=== PATIENT | female | born 1995 ===

== ENCOUNTER 2018-07-28 15:17 | Emergency (ER) | payer MEDICAID, SELFPAY ==
[2018-07-28 15:21] VITALS: BP 111/61; PULSE 86; RESP 16; TEMP 37.2; O2SAT 99
[2018-07-28 15:40] LABS: Bilirubin Negative (Negative); Blood Trace-intact (Negative); Clarity Sl Cloudy; Glucose Negative (Negative); Ketones Negative (Negative); Leukocyte Esterase Negative (Negative); Nitrite Negative (Negative); Urobilinogen 0.2 EU/dL (Up TO 0.2); pH 6.5 (5-8)
[2018-07-28 16:01] LABS: Bacteria Few HPF (Negative); C & S Indicated? No/Sq. Contamination; Casts Negative LPF (Negative); Crystals Negative HPF (Negative); Epithelial Cells Many HPF (Negative); Mucus Negative (Negative); Other Cells Negative (Negative); RBC 0-2 (0-2); WBC Negative HPF (0-5)
--- NOTE | 2018-07-28 16:35 | ED.GENADUL_ITS ---
Discharge Plan Disposition Patient Disposition: HOME Condition: Good Discharge Details Chief Complaint: Nk/Back Pain Clinical Impression: Shingles Primary Care Provider: Brayan Soria ED Provider: Ceferino Geronimo Home Meds and New Rx's Prescriptions: New acyclovir 800 mg tablet 800 mg PO Q4H Qty: 28 RF: 0 Discharge Instructions Instructions: Shingles (ED) Stand Alone Forms: Work Release Referrals: [facility] Emergency Dept. [Outside] - Return if symptoms worsen (F/U at the urgent care center at [facility] on Sunday if the symptoms worsen. ) Discharge Data Discharge Date/Time-TO BE ENTERED AT DEPARTURE: 07/28/18 16:50 Medical Decision Making Vague symptom and presentation for shingles however being she has had them in the past it seems most likely cause of rash. Does not look like insect bites. Plan to treat with Axyclovir. Advised to return to urgent clinic at [facility] if symptoms continues or worsens. Use ibuprofen for pain. Pt is a patient of [facility]. HPI General Mode of arrival: ambulatory . Date/Time Provider Initiated Documentation: 07/28/18 16:32 . Limitations to Documentation: no limitations . Information obtained by: patient and family . History of Present Illness 23 year old F presents to the emergency department with the chief complaint of shingles, described as moderate, HPI Narrative: 23 y/o female here with c/o rash on back. Pain and burning sensation for last day or two and rash manifesting today. Denies any injury or UI symptoms. Tells me it is more on her skin than outside. Tells me she has had shingles before and it felt similar to this. A coworker told her she needed to be seen because it looked like spider bites and her skin could slough off. She has not noticed any spiders around her and does not recall any insect bites. Her tells me this is the main reason they come here was fear of her skin sloughing off. Related Data Home Medications Medication Instructions Recorded Confirmed acyclovir 800 mg PO Q4H #28 tab 07/28/18 Previous Rx's Medication Instructions Recorded acyclovir 800 mg PO Q4H #28 tab 07/28/18 Allergies Allergy/AdvReac Type Severity Reaction Status Date / Time No Known Drug Allergies Allergy Unverified 04/08/18 15:24 General Stated Complaint: Nk/Back Pain CYNTHIA: 4 Review of Systems Constitutional Reports as per HPI ENT Reports system reviewed and no additional complaints, except as docu Cardiovascular Reports system reviewed and no additional complaints, except as docu Respiratory Reports system reviewed and no additional complaints, except as docu Gastrointestinal Reports system reviewed and no additional complaints, except as docu Genitourinary Reports system reviewed and no additional complaints, except as docu Musculoskeletal Reports back pain (burning and cramping near the rash) Integumentary/Breasts Reports rash (low back center and to the left) PFS Social History Smoking/Tobacco Use Status: Never Surgical History Ligation of fallopian tube (12/19/17) Exam Const General: cooperative and well groomed Nutritional Appearance: average body habitus Orientation: alert, awake and oriented x3 Back/Spine/Pelvis Back: no CVA tenderness, No mass, No erythema and No warmth Cervical Spine: normal cervical lordosis and cervical ROM normal Thoracic/Lumbar Spine: thoraco-lumbar ROM normal and other (light diffuse patch of slightly raise patches to the left center of lumbar spine and then slight above that patch is another patch to the left aswell. Both is tender to touch. Not vesicualr, red, or draining) Skin Lesions: no lesions Rashes: rashes noted (back) Neuro General: alert, awake, oriented x3 and moves all extremities Cognition: normal cognition Speech: speech normal Gait: normal gait Motor: muscle tone normal throughout Extrem General: full ROM and normal capillary refill Psych Appearance: grossly normal Mental Status: mental status grossly normal Speech and Movement: speech and movement normal Mood: congruent mood Affect: normal affect Attitude: cooperative Thought Process: normal Thought Content: normal Insight: insight good Judgment: judgment good Course Vital Signs Temperature 37.2 C 07/28/18 15:21 Pulse 86 07/28/18 15:21 Respiratory Rate 16 07/28/18 15:21 Blood Pressure 111/61 07/28/18 15:21 Pulse Oximetry 99 07/28/18 15:21 Temperature 37.2 C 07/28/18 15:21 Temperature Source Oral 07/28/18 15:21 Pulse 86 07/28/18 15:21 Respiratory Rate 16 07/28/18 15:21 Respiratory Effort 07/28/18 15:21 Blood Pressure 111/61 07/28/18 15:21 Blood Pressure Position Sitting 07/28/18 15:21 Pulse Oximetry 99 07/28/18 15:21 Oxygen Delivery Method Room Air 07/28/18 15:21 Oxygen Flow Rate 0 07/28/18 15:21 Lab/Test Results Lab/Test Results: Laboratory Tests Range/Units 07/28/18 15:28 Urine Color (Yellow) Yellow Urine Clarity Sl cloudy Urine pH (5-8) 6.5 Ur Specific Blessing (1.005-1.025) 1.020 Urine Protein (Negative) mg/dL Negative Urine Ketones (Negative) mg/dL Negative Urine Blood (Negative) Trace-intact H Urine Nitrite (Negative) Negative Urine Bilirubin (Negative) Negative Urine Urobilinogen (Up TO 0.2) EU/dL 0.2 Ur Leukocyte Esterase (Negative) Negative Urine RBC (0-2) 0-2 Urine WBC (0-5) HPF Negative Ur Epithelial Cells (Negative) HPF Many Urine Crystals (Negative) HPF Negative Urine Bacteria (Negative) HPF Few Urine Casts (Negative) LPF Negative Urine Mucus (Negative) Negative Urine Other (Negative) Negative Ur Culture Indicated? No/sq. contamination Urine Glucose (Negative) mg/dL Negative
--- NOTE | 2018-07-29 09:45 | NUR.NOTE ---
Nursing Note: Patient called stating that she was unable to nut picker the prescription yesterday. The rash (shingles) has spread and is very painful. Is there another medicine other than tylenol or motrin for pain? Spoke with Rafy Geronimo who saw the patient, he stated to tell her that she needs to nut picker the prescription, continue with the tylenol or motrin. She can also call her PMD or see him at the Urgent Care Clinic at [facility] on Sunday. Called the patient back and gave her this information. Kenyatta Johnson.
== END 2018-07-28 16:50 | disposition home or self-care (01) ==
PROVIDERS: Emergency Provider Nurse Practitioner Family; PCP Family Medicine
DX: B02.9 Zoster without complications (principal)
CPT/HCPCS: 99283; 81003; 81015

== ENCOUNTER 2018-07-30 10:00 | Emergency (ER) | payer MEDICAID, SELFPAY ==
[2018-07-30 10:09] VITALS: BP 108/67; PULSE 66; RESP 14; TEMP 36.5; O2SAT 100
--- NOTE | 2018-07-30 10:34 | W.ED.GENAD ---
Discharge Plan Disposition Patient Disposition: HOME Condition: Good Discharge Details Chief Complaint: RashLesion Clinical Impression: Shingles Primary Care Provider: Brayan Soria ED Provider: Ceferino Andrew [place] Meds and New Rx's Prescriptions: New lidocaine 4 % adhesive patch,medicated 1 patch TP TID PRN (Reason: pain) Qty: 6 RF: 0 gabapentin 300 mg capsule 300 mg PO TID Qty: 30 RF: 0 oxycodone 5 mg tablet 5 mg PO Q4H PRN (Reason: pain, severe) Qty: 10 RF: 0 Continue acyclovir 800 mg tablet 800 mg PO Q4H Qty: 28 RF: 0 Discharge Instructions Instructions: Shingles (ED) Medical Decision Making PAtient comes in with 3 days of painful rash along t9 distrubtion, dx'd with shingles 2 days ago and is on acyclovir but still has pain so came here. Rash does have appearance of shingles and follows dermatome, doesn't cross midline, has 3 patches and not warm to touch so doubt cellulitis or nec fasc. Will prescribe her gabapentin and opiates and lidocaine patch and advised f/u with pcp and return precauitons given Differential Diagnosis shingles, cellulitis HPI General Mode of arrival: ambulatory. Date/Time Provider Initiated Documentation: 07/30/18 10:09. Limitations to Documentation: no limitations. Information obtained by: patient. History of Present Illness 23 year old F presents to the emergency department with the chief complaint of rash, described as moderate, with intensity rated at 4. Quality is described as burning, Patient started experiencing this day(s) (3) and it has been constant. No relieving factors improve symptom(s), No exacerbating factors reported . Patient notes no other symptoms.. Patient did receive the following treatments prior to arrival, other (acyclovir, tylenol, ibuprofen) Related Data Home Medications Medication Instructions Recorded Confirmed acyclovir 800 mg PO Q4H #28 tab 07/28/18 07/30/18 gabapentin 300 mg PO TID #30 cap 07/30/18 lidocaine 1 patch TP TID PRN #6 each 07/30/18 oxycodone 5 mg PO Q4H PRN #10 tab 07/30/18 Previous Rx's Medication Instructions Recorded acyclovir 800 mg PO Q4H #28 tab 07/28/18 gabapentin 300 mg PO TID #30 cap 07/30/18 lidocaine 1 patch TP TID PRN #6 each 07/30/18 oxycodone 5 mg PO Q4H PRN #10 tab 07/30/18 Allergies Allergy/AdvReac Type Severity Reaction Status Date / Time No Known Drug Allergies Allergy Unverified 07/30/18 10:11 General Stated Complaint: RashLesion CYNTHIA: 4 Review of Systems Review of Systems All systems reviewed & are unremarkable except as noted in HPI and below Constitutional Denies chills, Denies fever(s) and Denies weakness Eyes Denies loss of vision ENT Denies change in voice Cardiovascular Denies chest pain and Denies dyspnea Respiratory Denies dyspnea Gastrointestinal Denies abdominal pain, Denies nausea and Denies vomiting Genitourinary Denies dysuria Musculoskeletal Denies joint swelling Neurologic Denies loss of vision and Denies weakness Psychiatric Denies depression Endocrine Denies cold intolerance and Denies heat intolerance Allergic/Immunologic Denies urticaria PFSH Social History Smoking/Tobacco Use Status: Never Surgical History Ligation of fallopian tube (12/19/17) Exam Const General: no acute distress Orientation: alert HENND Head: normal to inspection Ears: external ears normal General nose exam: external nose normal Mouth: moist mucous membranes Eyes General: appearance normal, both eyes and all related structures Neck Neck: normal visual inspection Resp Effort & Inspection: normal respiratory effort and able to speak in complete sentences Cardio Rate: regular rate Skin General skin exam: other (maculopapular rash with vesciles in left t9 distribution) Neuro General: alert and oriented x3 Extrem General: normal to inspection Psych Mental Status: mental status grossly normal Course Vital Signs Temperature 36.5 C 07/30/18 10:09 Pulse 66 07/30/18 10:09 Respiratory Rate 14 07/30/18 10:09 Blood Pressure 108/67 07/30/18 10:09 Pulse Oximetry 100 07/30/18 10:09 Temperature 36.5 C 07/30/18 10:09 Temperature Source Temporal Artery Scan 07/30/18 10:09 Pulse 66 07/30/18 10:09 Respiratory Rate 14 07/30/18 10:09 Respiratory Effort Non-Labored 07/30/18 10:15 Blood Pressure 108/67 07/30/18 10:09 Pulse Oximetry 100 07/30/18 10:09 Pain Level 10 07/30/18 10:09
--- NOTE | 2018-07-30 10:38 | ED.GENADUL_ITS ---
Discharge Plan Disposition Patient Disposition: HOME Condition: Good Discharge Details Chief Complaint: RashLesion Clinical Impression: Shingles Primary Care Provider: Brayan Soria ED Provider: Ceferino Andrew [place] Meds and New Rx's Prescriptions: New lidocaine 4 % adhesive patch,medicated 1 patch TP TID PRN (Reason: pain) Qty: 6 RF: 0 gabapentin 300 mg capsule 300 mg PO TID Qty: 30 RF: 0 oxycodone 5 mg tablet 5 mg PO Q4H PRN (Reason: pain, severe) Qty: 10 RF: 0 Continue acyclovir 800 mg tablet 800 mg PO Q4H Qty: 28 RF: 0 Discharge Instructions Instructions: Shingles (ED) Medical Decision Making PAtient comes in with 3 days of painful rash along t9 distrubtion, dx'd with shingles 2 days ago and is on acyclovir but still has pain so came here. Rash does have appearance of shingles and follows dermatome, doesn't cross midline, has 3 patches and not warm to touch so doubt cellulitis or nec fasc. Will prescribe her gabapentin and opiates and lidocaine patch and advised f/u with pcp and return precauitons given Differential Diagnosis shingles, cellulitis HPI General Mode of arrival: ambulatory . Date/Time Provider Initiated Documentation: 07/30/18 10:09 . Limitations to Documentation: no limitations . Information obtained by: patient . History of Present Illness 23 year old F presents to the emergency department with the chief complaint of rash, described as moderate, with intensity rated at 4. Quality is described as burning, Patient started experiencing this day(s) (3) and it has been constant. No relieving factors improve symptom(s), No exacerbating factors reported . Patient notes no other symptoms.. Patient did receive the following treatments prior to arrival, other (acyclovir, tylenol, ibuprofen ) Related Data Home Medications Medication Instructions Recorded Confirmed acyclovir 800 mg PO Q4H #28 tab 07/28/18 07/30/18 gabapentin 300 mg PO TID #30 cap 07/30/18 lidocaine 1 patch TP TID PRN #6 each 07/30/18 oxycodone 5 mg PO Q4H PRN #10 tab 07/30/18 Previous Rx's Medication Instructions Recorded acyclovir 800 mg PO Q4H #28 tab 07/28/18 gabapentin 300 mg PO TID #30 cap 07/30/18 lidocaine 1 patch TP TID PRN #6 each 07/30/18 oxycodone 5 mg PO Q4H PRN #10 tab 07/30/18 Allergies Allergy/AdvReac Type Severity Reaction Status Date / Time No Known Drug Allergies Allergy Unverified 07/30/18 10:11 General Stated Complaint: RashLesion CYNTHIA: 4 Review of Systems Review of Systems All systems reviewed & are unremarkable except as noted in HPI and below Constitutional Denies chills, Denies fever(s) and Denies weakness Eyes Denies loss of vision ENT Denies change in voice Cardiovascular Denies chest pain and Denies dyspnea Respiratory Denies dyspnea Gastrointestinal Denies abdominal pain, Denies nausea and Denies vomiting Genitourinary Denies dysuria Musculoskeletal Denies joint swelling Neurologic Denies loss of vision and Denies weakness Psychiatric Denies depression Endocrine Denies cold intolerance and Denies heat intolerance Allergic/Immunologic Denies urticaria PFSH Social History Smoking/Tobacco Use Status: Never Surgical History Ligation of fallopian tube (12/19/17) Exam Const General: no acute distress Orientation: alert HENNM Head: normal to inspection Ears: external ears normal General nose exam: external nose normal Mouth: moist mucous membranes Eyes General: appearance normal, both eyes and all related structures Neck Neck: normal visual inspection Resp Effort & Inspection: normal respiratory effort and able to speak in complete sentences Cardio Rate: regular rate Skin General skin exam: other (maculopapular rash with vesciles in left t9 distribution) Neuro General: alert and oriented x3 Extrem General: normal to inspection Psych Mental Status: mental status grossly normal Course Vital Signs Temperature 36.5 C 07/30/18 10:09 Pulse 66 07/30/18 10:09 Respiratory Rate 14 07/30/18 10:09 Blood Pressure 108/67 07/30/18 10:09 Pulse Oximetry 100 07/30/18 10:09 Temperature 36.5 C 07/30/18 10:09 Temperature Source Temporal Artery Scan 07/30/18 10:09 Pulse 66 07/30/18 10:09 Respiratory Rate 14 07/30/18 10:09 Respiratory Effort Non-Labored 07/30/18 10:15 Blood Pressure 108/67 07/30/18 10:09 Pulse Oximetry 100 07/30/18 10:09 Pain Level 10 07/30/18 10:09
== END 2018-07-30 10:54 | disposition home or self-care (01) ==
PROVIDERS: Emergency Provider Emergency Medicine; PCP Family Medicine
DX: B02.9 Zoster without complications (principal)
CPT/HCPCS: 99283

== ENCOUNTER 2018-11-25 11:04 | Outpatient (CLI) | payer MEDICAID, SELFPAY | END 2018-11-25 11:24 | PROVIDERS: PCP Family Medicine; Visit Provider Internal Medicine | DX: R69 Illness, unspecified (principal) | CPT/HCPCS: 36415; 84443; 85025 ==

== ENCOUNTER 2019-05-19 08:01 | Day surgery (SDC) | payer MEDICAID, SELFPAY ==
[2019-05-19] VITALS (7 sets, daily range): BP systolic 92–137; BP diastolic 60–97; PULSE 59–71; RESP 13–22; TEMP 36.4–36.6; O2SAT 98–100
[2019-05-19] MEDS: Lactated Ringers 1,000 ML 80 ML IV (08:35)
--- NOTE | 2019-05-19 09:44 | W.PM.DSUDISC ---
Discharge Plan Disposition Patient Disposition: HOME Condition: Good Discharge Details Reason For Visit: OR Attending Provider: Carlton Hull Primary Care Provider: Felicity Albert Home Meds and New Rx's Prescriptions: No Action sertraline [Zoloft] 25 mg tablet 25 mg PO DAILY Qty: 30 RF: 2 Discharge Instructions Additional Instructions: see sheet Activity:: Activity as Tolerated Remove Dressings/Wound Care:: 24 hours Shower/Bathe:: 24 hours Diet:: As Tolerated DS: Diagnosis Discharge Diagnosis (1) Chronic tonsillitis: Status: Acute (2) Tonsil stone: Status: Acute
--- NOTE | 2019-05-19 10:00 | TONSIL_PTH ---
PATIENT: Ivy Amin LOC: [facility] U#:[id number] AGE/SX: 23/F ROOM: RE05/19/[address]: Carlton Hull DO : 1995 BED: DIS: 05/19/2019 SPEC #: [id number] RECD: 05/19/19 12:04 STATUS: YEN REQ #: [id number] NIA: 05/19/19 10:[address]: Carlton Hull DEPT: Surgical Specimen RECD BY: Audrey Gee ENTERED: 05/19/19 12:05 SP TYPE: TONSIL OTHR DR: Maria Esther Borden APRN Tissues: 1 - TONSIL AGE 17 & OVER 2 - TONSIL AGE 17 & OVER Procedures: GROSS AND MICRO LEVEL 3 Comments: [id number]
[2019-05-19] MEDS: Oxymetazolone 0.05% SPRAY 15 ML BTL (10:09)
[2019-05-19] MEDS: fentaNYL 100 MCG/2 ML VIAL IVP ×2 (10:44→11:12)
--- NOTE | 2019-05-19 12:08 | ROE_ITS ---
REPORT OF OPERATIVE PROCEDURE DATE OF PROCEDURE May 19, 2019 PREOPERATIVE DIAGNOSES Chronic tonsillitis. Chronic tonsil stones. POSTOPERATIVE DIAGNOSES Chronic tonsillitis. Chronic tonsil stones. Adenoid hypertrophy. PROCEDURES Tonsillectomy and adenoidectomy with XPS. SURGEON Carlton Hull D.O. ANESTHESIA General. ESTIMATED BLOOD LOSS 3 cc. COMPLICATIONS None. CONDITION The patient tolerated the procedure well. Stable to PACU without complications. FINDINGS 3+ tonsils and 3+ obstructive adenoids with purulence. INDICATIONS FOR PROCEDURE This is a pleasant 23-year-old female that presents with her with a history of chronic tonsil litis and recurring tonsil stones. The decision was made to proceed with surgery. The risks and compl ications were discussed in detail. Consent was placed in the chart. PROCEDURE IN DETAIL The patient was brought back to the operating suite in stable condition, placed supine on the operati ng table, and intubated in normal fashion. The table was rotated 90 degrees. There was no evidence of submucosal clefting or bifid uvula. The McIvor retractor was placed in the oral cavity and suspen ded from the Garcia stand. The right tonsil was grasped in the superior pole and medialized. Pinpoint cautery was used to develop the peritonsillar fascial plane, dissection was carried out to the upper and mid portions of the tonsil with final amputation conducted with suction cautery. There was no b leeding within the right tonsillar fossa. Next, the left tonsil was grasped in the superior pole wit h a curved Allis forceps and medialized. Pinpoint cautery was used to develop the peritonsillar fasc ial plane. Dissection was carried out in the plane in the superior and mid portion of the tonsils. Final amputation was conducted with suction cautery without bleeding within left fossa, Valsalva was performed without bleeding. TMJ's were checked and were free of dislocation. Gastric contents sucti oned. Red rubber catheters were used to visualize the nasopharynx. The adenoid pad was removed with 4.0 RADenoid blade and hemostasis was controlled with cautery. No bleeding existed. The patient to lerated the procedure well and went to PACU in stable condition.
== END 2019-05-19 12:20 | disposition home or self-care (01) ==
PROVIDERS: PCP Internal Medicine; Visit Provider Otolaryngology Otolaryngology/Facial Plastic Surgery
PROC: (CPT 42821; principal; 2019-05-19 09:45)
DX: J35.03 Chronic tonsillitis and adenoiditis (principal); J35.8 Other chronic diseases of tonsils and adenoids
CPT/HCPCS: 42821; 81025; 88304; J1100; J2250; J2405; J3010

== ENCOUNTER 2019-05-25 21:30 | Emergency (ER) | payer MEDICAID, SELFPAY ==
[2019-05-25 21:36] VITALS: BP 107/66; RESP 16; TEMP 36.6; O2SAT 100
--- NOTE | 2019-05-25 21:53 | ED.GENADUL_ITS ---
Discharge Plan Disposition Patient Disposition: HOME Condition: Improving Discharge Details Chief Complaint: Sorethroat Clinical Impression: Post-tonsillectomy pain Primary Care Provider: Felicity Albert ED Provider: Iker Donaldson Home Meds and New Rx's Prescriptions: Continued sertraline [Zoloft] 25 mg tablet 25 mg PO DAILY Qty: 30 RF: 2 Discharge Instructions Instructions: Tonsillectomy (GEN) Additional Instructions: For pain control: Tylenol 650 mg every 4-6 hours. Ibuprofen 600 to 800 mg every 8 hours. May use Magic mouthwash 5 cc swish and spit every 4 hours. Small, frequent sips of fluids and/or popsicles to maintain hydration. Off work tomorrow night. Return if you develop a fever or any other acute concern Stand Alone Forms: Work Release Medical Decision Making 23-year-old female presents from home with her . She is postop day 6 status post uneventful tonsillectomy. She did not tolerate postoperative narcotics and has been controlling her pain with what she states is 2 Motrin and 2 Tylenol She arrives with normal vital signs. Her oropharynx is notable for dry mucous membranes, appropriate scarring of the tonsillar beds. Differential diagnosis includes dehydration, postoperative pain, is not consistent with infection. IV placed, labs obtained, patient given fluid bolus, ketorolac. Given reasonable data in the literature for perioperative dexamethasone, I did feel that a single administration of anti-inflammatory would be to her benefit. Red blood cell count is normal at 9. Chemistries unremarkable. Following IV fluids, ketorolac, single dose of dexamethasone patient able to take fluids and a popsicle without difficulty, pain improved. Will offer her Magic mouth wash to aid in controlling discomfort. She is stable and improved. Lab Data Lab results reviewed: Yes I reviewed the patient's lab results. Laboratory Results - last 24 hr 05/25/19 05/25/19 22:05 22:05 WBC 9.09 RBC 3.80 L Hgb 11.1 L Hct 33.8 L MCV 88.9 MCH 29.2 MCHC 32.8 RDW 13.4 Plt Count 311 MPV 10.1 Immature Gran % 0.2 Neutrophils % 43.5 Lymphocytes % 46.2 Monocytes % 8.7 Eosinophils % 1.2 Basophils % 0.2 Absolute Neutrophils 3.95 Absolute Lymphocytes 4.20 H Absolute Monocytes 0.79 H Absolute Eosinophils 0.11 Absolute Basophils 0.02 Sodium 139 Potassium 4.5 Chloride 104 Carbon Dioxide 27.3 Anion Gap 7.7 BUN 13 Creatinine 0.65 Estimated GFR/1.73 m2 >= 60.00 Glucose 87 Calcium 8.8 HPI General Mode of arrival: ambulatory . Date/Time Provider Initiated Documentation: 05/25/19 21:33 . Limitations to Documentation: no limitations . Information obtained by: patient . History of Present Illness 23 year old F presents to the emergency department with the chief complaint of Postoperative pain, status post tonsillectomy, described as moderate, Quality is described as dull, and is localized to the mouth. Patient reports no radiation. Patient started experiencing this day(s) and it has been constant. No relieving factors improve symptom(s), No exacerbating factors reported . Patient notes loss of appetite; denies fever/chills. Patient did receive the following treatments prior to arrival, NSAID Related Data Home Medications Medication Instructions Recorded Confirmed sertraline 25 mg tablet 25 mg PO DAILY #30 tab 03/21/19 05/25/19 Previous Rx's Medication Instructions Recorded sertraline 25 mg tablet 25 mg PO DAILY #30 tab 03/21/19 Allergies Allergy/AdvReac Type Severity Reaction Status Date / Time No Known Drug Allergies Allergy Verified 05/25/19 22:22 General Stated Complaint: Sorethroat CYNTHIA: 3 Review of Systems Review of Systems 6 systems reviewed and otherwise negative [facility] Medical History Anxiety (Chronic 03/06/12) Depression (Chronic 03/06/12) History of female sterilization (Resolved 01/03/18) PTSD (post-traumatic stress disorder) (Chronic 03/06/12) Shingles (Chronic) Surgical History Ligation of fallopian tube (12/19/17) Family History Other Cancer Social History Smoking/Tobacco Use Status: Never Alcohol Intake: never Drug use: Never Substance use type: marijuana Do you feel safe at home: Yes Do you feel safe in your relationship?: Yes Additional Social history: unable to complete, no option for privacy of conversation Exam Narrative Exam Narrative: GEN: awake, alert, oriented 3. Pleasant, well groomed, interactive. HEAD: Normocephalic, atraumatic ENT: Mucous membranes dry, oropharynx reveals tonsillar pillars with appropriate postoperative scarring, no asymmetry or swelling, no bleeding. Tympanic membranes clear bilaterally, External ear exam unremarkable EYES: PERRL, EOMI NECK: Full ROM, no ROLLY, no menigismus CHEST/RESP: Nontender, clear to auscultation bilateral, no wheeze/rhonchi/rales CARDIOVASCULAR: RRR, no murmur, rub jun. 2+ Rad pulse bilateral EXT: Full ROM, no edema, no rash Neuro: Grossly normal neurologic exam, conversant, interactive. Psych: Speech fluent, thoughts congruent, affect normal Course Vital Signs Temperature 36.6 C 05/25/19 21:36 Respiratory Rate 16 05/25/19 21:36 Blood Pressure 107/66 05/25/19 21:36 Pulse Oximetry 100 05/25/19 21:36 Temperature 36.6 C 05/25/19 21:36 Temperature Source Temporal Artery Scan 05/25/19 21:36 Respiratory Rate 16 05/25/19 21:36 Blood Pressure 107/66 05/25/19 21:36 Pulse Oximetry 100 05/25/19 21:36 Oxygen Delivery Method Room Air 05/25/19 21:36 Oxygen Flow Rate 0 05/25/19 21:36
[2019-05-25 22:00] VITALS: PULSE 70; RESP 16; O2SAT 100
[2019-05-25] MEDS: Normal Saline 1,000 ML 1000 ML IV (22:00)
[2019-05-25 22:10] LABS: Abs Immature Grans 0.02 k/cumm (0.0-0.09); Absolute Basophil Count 0.02 k/cumm (0.0-0.2); Absolute Eosinophil Count 0.11 k/cumm (0.0-0.7); Absolute Monocyte Count 0.79 k/cumm (0.11-0.7); Absolute Neutrophil Count 3.95 k/cumm (1.2-6.7); Basophils % 0.2; Eosinophils % 1.2; HCT 33.8 % (36.0-46.0); HGB 11.1 g/dL (12.0-15.5); Immature Grans % 0.2; Lymphocytes % 46.2; Mean Corp. HGB Concentration 32.8 g/dL (32.0-36.0); Mean Corpuscular Hemoglobin 29.2 pg (27.0-33.0); Mean Corpuscular Volume 88.9 fL (80-95); Mean Platelet Volume 10.1 fL (8.0-11.0); Monocytes % 8.7; Neutrophils % 43.5; Platelet Count 311 x1000/uL (130-400); RBC Distribution Width 13.4 % (11.7-14.6); White Blood Cell Count 9.09 k/cumm (4.4-10.8)
[2019-05-25] MEDS: Ketorolac 15 MG/ML VIAL IVP (22:11)
[2019-05-25] MEDS: Dexamethasone 10 MG/ML VIAL IVP (22:11)
[2019-05-25 22:18] LABS: Anion Gap 7.7 mmol/L (3-11); BUN 13 mg/dL (7-18); CO2 27.3 mmol/L (21.0-32.0); CREATININE 0.65 mg/dL (0.55-1.02); Calcium 8.8 mg/dL (8.5-10.1); Chloride 104 mmol/L (98-107); Glucose 87 mg/dL (70-100); Potassium 4.5 mmol/L (3.5-5.1); Sodium 139 mmol/L (136-145)
[2019-05-25 22:36] VITALS: PULSE 69; RESP 18; TEMP 36.7; O2SAT 100
[2019-05-25] MEDS: Magic Mouthwash 119 ML BTL PO (23:10)
== END 2019-05-25 22:50 | disposition home or self-care (01) ==
PROVIDERS: Emergency Provider Emergency Medicine; PCP Internal Medicine
DX: G89.18 Other acute postprocedural pain (principal); J02.9 Acute pharyngitis, unspecified
CPT/HCPCS: 36415; 80048; 96361; 96374; 96375; 99284; 85025; J1100; J1885

== ENCOUNTER 2020-06-01 16:46 | Outpatient (REF) | payer MEDICAID, SELFPAY ==
--- NOTE | 2020-06-01 15:00 | PAPFT_PTH ---
PATIENT: Ivy Amin LOC: [facility] U#:[id number] AGE/SX: 24/F ROOM: RE06/01/[address]: Anika Armstrong, PhD [employer] : 1995 BED: DIS: 06/01/2020 SPEC #: [id number] RECD: 06/02/20 12:55 STATUS: YEN REMelinda #: [id number] NIA: 06/01/20 15:[address]: Anika Armstrong DEPT: [facility] Cytology RECD BY: Mario Garcia Tissues: 1 - CX/ENDOCX FOR PAP SMEARS Procedures: PAP THIN PREP/UVM Screening Comments: [id number]
== END 2020-06-01 17:06 ==
LOC: LBN 16:46
PROVIDERS: PCP Nurse Practitioner; Visit Provider Nurse Practitioner
DX: Z12.4 Encounter for screening for malignant neoplasm of cervix (principal)
CPT/HCPCS: 88142

== ENCOUNTER 2021-08-30 13:56 | Outpatient (REF) | payer MEDICAID, SELFPAY ==
[2021-08-31 19:14] LABS: COVID-19 RT-PCR UVMMC Result Positive (Negative)
== END 2021-08-30 13:57 | disposition home or self-care (01) ==
LOC: LBN 13:56
PROVIDERS: PCP Nurse Practitioner; Visit Provider Family Medicine
DX: Z20.822 Contact with and (suspected) exposure to COVID-19 (principal); R50.9 Fever, unspecified
CPT/HCPCS: U0003

== ENCOUNTER 2022-02-20 16:00 | Outpatient (REF) | payer MEDICAID, SELFPAY | END 2022-02-20 16:01 | disposition home or self-care (01) | LOC: LBN 16:00 | PROVIDERS: PCP Nurse Practitioner; Visit Provider Physician Assistant | DX: R10.9 Unspecified abdominal pain (principal) | CPT/HCPCS: 87480; 87510; 87660 ==

== ENCOUNTER 2022-05-05 14:54 | Outpatient (REF) | payer MEDICAID, SELFPAY ==
[2022-05-05 15:26] LABS: HCT 38.7 % (36.0-46.0); HGB 12.6 g/dL (11.2-15.7); MCH 29.4 pg (27.0-33.0); MCHC 32.6 % (32.0-36.0); MCV 90 fL (80-95); MPV 11.7 fL (8.0-11.0); Platelet Count 298 10^3/uL (130-400); RBC 4.29 10^6/uL (3.93-5.22); RDW 12.6 % (11.7-14.6); RDW-SD 41.6 fL; WBC 5.94 10^3/uL (4.4-10.8)
[2022-05-05 15:51] LABS: BUN 9 mg/dL (7-18); CREATININE 0.9 mg/dL (0.55-1.02); Calcium 9.3 mg/dL (8.5-10.1); Chloride 101 mmol/L (98-107); Glucose 71 mg/dL (74-106); Potassium 4.2 mmol/L (3.5-5.1); Sodium 138 mmol/L (136-145)
== END 2022-05-05 14:55 | disposition home or self-care (01) ==
LOC: LBN 14:54
PROVIDERS: PCP Nurse Practitioner; Visit Provider Nurse Practitioner Family
DX: R94.6 Abnormal results of thyroid function studies (principal); Z83.49 Family history of other endocrine, nutritional and metabolic diseases
CPT/HCPCS: 80048; 85027; 84443

== ENCOUNTER 2022-05-06 15:15 | Emergency (ER) | payer MEDICAID, SELFPAY ==
[2022-05-06 15:26] VITALS: BP 93/56; PULSE 102; RESP 16; TEMP 36.9; O2SAT 96
--- NOTE | 2022-05-06 15:45 | DI.CT_ITS ---
Exam(s) CT ABDOMEN PELVIS W EXAM: CT ABDOMEN PELVIS W CLINICAL HISTORY: vomiting feces, abdominal pain. TECHNIQUE: Imaging Protocol: Axial computed tomography images with coronal and sagittal reformatted images were created and reviewed CONTRAST MATERIAL: Intravenous: Omnipaque 350 Contrast volume:85 ml Oral: no COMPARISON: CT ABD PELVIS WO CONTRAST from 02/25/2018 FINDINGS: ABDOMEN: Lung Bases: Normal where visualized. Liver: Normal density. No measurable mass. Gallbladder and biliary tract: No radiodense calculus or dilation. Pancreas: Normal density, no abnormal calcifications or inflammatory process. Spleen: Normal. Kidneys: Normal size, contour and axis. No radiodense stones or obstructive uropathy. No masses seen. Adrenal glands: No masses seen. Abdominal Aorta: Abdominal portion non-dilated. PELVIS: Bladder: No gross wall thickening. No calculi.No focal mass. Bowel: No obstruction or bowel wall thickening. Moderate quantity of stool in colon. No evidence of appendicitis.. Peritoneal cavity: No ascites, collection or mesenteric inflammatory response. Bones: Within normal limits for age. Reproductive organs: Within normal limits. Uterus retroverted. Lymph nodes: Unremarkable. Impression: Unremarkable CT scan of the abdomen and pelvis. RADIATION DOSE DELIVERED: 689.19mGy.cm Total DLP DATA REPOSITORY: All CT scans at this facility are submitted to the National Radiology Data Registry (NRDR) Dose Index Registry (DIR) with the [employer] [place] (ACR). RADIATION OPTIMIZATION: All CT scans at this facility use at least one of these dose optimization te chniques: automated exposure control; mA and/or kV adjustment per patient size (includes targeted exa ms where dose is matched to clinical indication); or iterative reconstruction.
[2022-05-06] MEDS: Lactated Ringers 1,000 ML 1000 ML IV (16:15)
[2022-05-06] MEDS: Ondansetron 4 MG/2 ML VIAL IVP (16:20)
[2022-05-06 16:22] LABS: Abs Immature Grans 0.04 10^3/uL (0.0-0.06); Absolute Monocyte Count 1.04 10^3/uL (0.1-0.8); Basophils % 0.4; Eosinophils % 1.4; HCT 39.1 % (36.0-46.0); HGB 12.9 g/dL (11.2-15.7); Immature Grans % 0.2; Lymphocytes % 15.8; MCH 29.7 pg (27.0-33.0); MCV 90 fL (80-95); MPV 10.5 fL (8.0-11.0); Monocytes % 6.2; Platelet Count 313 10^3/uL (130-400); RBC 4.34 10^6/uL (3.93-5.22); RDW 12.2 % (11.7-14.6); RDW-SD 40.8 fL; WBC 16.81 10^3/uL (4.4-10.8)
[2022-05-06 16:27] LABS: Absolute Basophil Count 0.07 10^3/uL (0.0-0.2); Absolute Eosinophil Count 0.24 10^3/uL (0.0-0.7); Absolute Lymphocyte Count 2.66 10^3/uL (1.2-3.4); Absolute Neutrophil Count 12.78 10^3/uL (1.2-6.7)
[2022-05-06 16:39] LABS: ALT 19 U/L (14-59); AST 13 U/L (15-37); Albumin 4.2 g/dL (3.4-5.0); Alkaline Phosphatase 66 U/L (46-116); Anion Gap 7.4 mmol/L (3-11); BUN 10 mg/dL (7-18); Bilirubin, Total 0.3 mg/dL (0.2-1.0); CO2 28.6 mmol/L (21.0-32.0); CREATININE 0.8 mg/dL (0.55-1.02); Calcium 8.9 mg/dL (8.5-10.1); Chloride 103 mmol/L (98-107); Glucose 99 mg/dL (74-106); Lipase 68 U/L (73-393); Magnesium 1.7 mg/dL (1.8-2.4); Potassium 3.8 mmol/L (3.5-5.1); Sodium 139 mmol/L (136-145); Total Protein 8.3 g/dL (6.4-8.2)
[2022-05-06] MEDS: Omnipaque 350 MG/ML 100 ML BTL 85 ML IJ (16:56)
[2022-05-06] MEDS: Normal Saline Flush 10 ML SYR IVP (16:58)
--- NOTE | 2022-05-06 17:17 | DI.VRAD_ITS ---
PROCEDURE INFORMATION: Exam: CT Abdomen And Pelvis With Contrast Exam date and time: 05/06/2022 4:52 PM Age: 26 years old Clinical indication: Other: Vomiting feces, abdominal pain TECHNIQUE: Imaging protocol: Computed tomography of the abdomen and pelvis with contrast. Contrast material: OMNIPAQUE 350; Contrast volume: 85 ml; Contrast route: INTRAVENOUS (IV); COMPARISON: CT ABD PELVIS WO CONTRAST 02/25/2018 11:57 PM FINDINGS: Normal liver, gallbladder, bile ducts, pancreas, spleen, adrenal glands, kidneys, ureters, and urinary bladder. Unremarkable reproductive organs. No bowel obstruction or wall thickening. Moderate to severe constipation. Normal appendix. Normal intraperitoneal and retroperitoneal spaces. No adenopathy. Unremarkable vasculature. Normal body wall soft tissues. Clear lung bases. Unremarkable bones. IMPRESSION: No acute abdominopelvic pathology. Specifically, no evidence of bowel obstruction. Dictated and Authenticated by: Ronnie Prieto MD. Ordering:MOOK Millan MD
[2022-05-06 17:27] LABS: Bilirubin Negative (Negative); Blood Moderate (Negative); Clarity Clear (Clear); Glucose Negative (Negative); Ketones Negative (Negative); Leukocyte Esterase Negative (Negative); Nitrite Negative (Negative); Specific Gravity 1.025 (1.005-1.025); Urobilinogen 0.2 EU/dL (Up TO 0.2)
[2022-05-06 17:37] LABS: Bacteria Negative HPF (Negative); Crystals Few Amorphous HPF (Negative); Epithelial Cells Moderate HPF (Negative); WBC 0-2 HPF (0-5)
[2022-05-06 17:38] LABS: C & S Indicated? No; Mucus Heavy (Negative)
[2022-05-06 17:53] VITALS: BP 106/62; PULSE 80; TEMP 36.7; O2SAT 100
[2022-05-06] MEDS: Famotidine 20 MG/2 ML VIAL IVP (17:55)
[2022-05-06 17:58] VITALS: BP 106/62; PULSE 80; RESP 14; TEMP 36.7; O2SAT 100
--- NOTE | 2022-05-06 19:30 | W.ED.GENAD ---
Discharge Plan Disposition Patient Disposition: HOME Condition: Stable Discharge Details Clinical Impression: Nausea & vomiting Primary Care Provider: Anika Armstrong ED Provider: Yana Mason Home Meds and New Rx's Prescriptions: New famotidine [Pepcid] 20 mg tablet 20 mg PO DAILY Qty: 30 0RF sucralfate [Carafate] 100 mg/mL suspension 10 ml PO BID Qty: 414 0RF ondansetron HCl 4 mg tablet 4 mg PO DAILY 3 Days Qty: 10 0RF Continued trazodone 100 mg tablet 200 mg PO QHS PRN (Reason: sleep) atomoxetine 40 mg capsule 40 mg PO QHS Discharge Instructions Instructions: Acute Nausea and Vomiting (ED) Additional Instructions: Take the nausea medication as prescribed Take the Pepcid daily Take the Carafate twice daily Start on [id number] Prilosec Clear liquid diet for the next several days and you may advance to bland diet as tolerated, bananas, rice, applesauce, toast Recheck on Sunday with your primary care physician Return earlier with new or worsening complaints Referrals: Anika Armstrong, GENERATOR WORKER [Primary Care Provider] - Discharge Data Discharge Date/Time-TO BE ENTERED AT DEPARTURE: 05/06/22 18:06 Medical Decision Making Patient appears well, she is resting comfortably in room She was mildly tachycardic initially with a have improved post fluids mild leukocytosis but she did vomit this morning and I suspect potentially the cause CT abdomen and pelvis does not show evidence of acute abnormality No active vomiting in the emergency department Discharged home in stable condition with stable vital Medical Records Medical records reviewed: Yes I reviewed the patient's medical records. Lab Data Lab results reviewed: Yes I reviewed the patient's lab results. HPI General Date/Time Provider Initiated Documentation: 05/06/22 15:36. HPI Narrative: This 26-year-old female presents with reports of nausea and diarrhea with intermittent vomiting and malodorous odor to her vomit. Patient states that approximately 9 days ago she had nausea and 1 episode of vomiting. She states she also had diarrhea at that time. The diarrhea has not resolved. She states that today she felt nauseous again and had an episode of vomiting which smelled feculent. She states that she also has been associated abdominal discomfort. She states her daughter had diarrhea approximately 2 weeks ago for 1 day but her symptoms resolved in approximately 24 hours with the patient symptoms have persisted. She she denies any chest pain or shortness of breath. She denies any prior abdominal surgeries. She denies any chance of . Related Data Home Medications Medication Instructions Recorded Confirmed atomoxetine 40 mg capsule 40 mg PO QHS 05/06/22 05/06/22 famotidine 20 mg tablet (Pepcid) 20 mg PO DAILY #30 tabs 05/06/22 ondansetron HCl 4 mg tablet 4 mg PO DAILY 3 days #10 tabs 05/06/22 sucralfate 100 mg/mL oral 10 ml PO BID #414 mL 05/06/22 suspension (Carafate) trazodone 100 mg tablet 200 mg PO QHS PRN sleep 05/06/22 05/06/22 Previous Rx's Medication Instructions Recorded famotidine 20 mg tablet (Pepcid) 20 mg PO DAILY #30 tabs 05/06/22 ondansetron HCl 4 mg tablet 4 mg PO DAILY 3 days #10 tabs 05/06/22 sucralfate 100 mg/mL oral 10 ml PO BID #414 mL 05/06/22 suspension (Carafate) Allergies Allergy/AdvReac Type Severity Reaction Status Date / Time No Known Drug Allergies Allergy Verified 05/06/22 15:31 General Stated Complaint: Abd Prob CYNTHIA: 3 Review of Systems All systems reviewed & are unremarkable except as noted in HPI and below PFSH All Active Problems (Updated 05/06/22 @ 17:58 by BITA Carson) Nausea & vomiting (Acute) Low back pain associated with a spinal disorder other than radiculopathy or spinal stenosis (Acute) Insomnia (Acute) Anemia (Chronic) Anxiety (Chronic 03/06/12) Depression (Chronic 03/06/12) 2020-Seeing [facility] (consent to communicate received) Medical History (Updated 05/06/22 @ 17:58 by BITA Carson) Amenorrhea COVID-19 08/2021- Encounter for contraceptive management (07/24/12) Headache (06/11/12) History of female sterilization (01/03/18) Interval laparoscopic tubal sterilization 12/19/2017. PTSD (post-traumatic stress disorder) (03/06/12) Sacroiliac joint pain (07/12/12) Shingles you may increase gabapentin, as discussed up to 6 tabs/day talk to children's provider about their immune status re: varicella Tonsil stone Surgical History Ligation of fallopian tube (12/19/17) laparoscopic bilateral salpingectomy. Family History Mother Alcohol abuse Breast cancer Brain cancer Diabetes High cholesterol Hypertension Father FH: prostate cancer Depression Heart disease High cholesterol Hypertension Substance abuse Sister No problems noted. Sister No problems noted. Sister No problems noted. Brother Depression Diabetes Hypertension Brother Alcohol abuse Depression Maternal Grandmother Breast cancer Paternal Grandmother No problems noted. Maternal Grandfather No problems noted. Paternal Grandfather No problems noted. Other Cancer Social History Smoking/Tobacco Use Status: Never Second Hand Exposure: Yes Smoking risk assessment performed?: Yes Alcohol Intake: never Drug use: Never Substance use type: does not use Caregiver/Support person: No Household members: significant other and children Pets and animals: Yes (rabbit) Pets and animals: other Duration: 15-30 minutes/day Frequency: 3-4 times per week Seatbelt use: always Helmet use: Yes Helmet use: sometimes Drive intox or ride w/intox drivers license examiner: No Do you feel safe at home: Yes Do you feel safe in your relationship?: Yes Victim of physical abuse: No Victim of emotional abuse: No Victim of sexual abuse: No Exam Const General: cooperative, comfortable and no acute distress Resp Effort & Inspection: normal respiratory effort Auscultation: clear to auscultation bilaterally Cardio Rate: regular rate Rhythm: regular rhythm GI Other: Mild generalized tenderness, no rebound or guarding Skin General skin exam: no rashes or lesions noted Neuro General: patient alert and patient oriented x3 Course Vital Signs Vital signs: Vital Signs Temperature 36.9 C 05/06/22 15:26 Pulse 102 H 05/06/22 15:26 Respiratory Rate 16 05/06/22 15:26 Blood Pressure 93/56 L 05/06/22 15:26 Pulse Oximetry 96 05/06/22 15:26 Temperature 36.7 C 05/06/22 17:58 Temperature Source Tympanic 05/06/22 17:53 Pulse 80 05/06/22 17:58 Respiratory Rate 14 05/06/22 17:58 Respiratory Effort 05/06/22 15:55 Blood Pressure 106/62 05/06/22 17:58 Blood Pressure Position Sitting 05/06/22 15:26 Pulse Oximetry 100 05/06/22 17:58 Oxygen Delivery Method Room Air 05/06/22 17:53 Oxygen Flow Rate 0 05/06/22 17:53 Pain Level 7 05/06/22 15:26 Lab/Test Results Lab/Test Results: Laboratory Tests Range/Units 05/06/22 05/06/22 05/06/22 16:15 16:15 16:36 WBC (4.4-10.8) 10^3/uL 16.81 H RBC (3.93-5.22) 10^6/uL 4.34 Hgb (11.2-15.7) g/dL 12.9 Hct (36.0-46.0) % 39.1 MCV (80-95) fL 90 MCH (27.0-33.0) pg 29.7 MCHC (32.0-36.0) % 33.0 RDW (11.7-14.6) % 12.2 Plt Count (130-400) 10^3/uL 313 MPV (8.0-11.0) fL 10.5 Immature Gran % 0.2 Neutrophils % 76.0 Lymphocytes % 15.8 Monocytes % 6.2 Eosinophils % 1.4 Basophils % 0.4 Nucleated RBC % (0.0-0.3) % 0.0 Absolute Neutrophils (1.2-6.7) 10^3/uL 12.78 H Absolute Lymphocytes (1.2-3.4) 10^3/uL 2.66 Absolute Monocytes (0.1-0.8) 10^3/uL 1.04 H Absolute Eosinophils (0.0-0.7) 10^3/uL 0.24 Absolute Basophils (0.0-0.2) 10^3/uL 0.07 Sodium (136-145) mmol/L 139 Potassium (3.5-5.1) mmol/L 3.8 Chloride (98-107) mmol/L 103 Carbon Dioxide (21.0-32.0) mmol/L 28.6 Anion Gap (3-11) mmol/L 7.4 BUN (7-18) mg/dL 10 Creatinine (0.55-1.02) mg/dL 0.8 Estimated GFR/1.73 m2 (mL/min/1.73m2) >= 60.00 Glucose (74-106) mg/dL 99 Calcium (8.5-10.1) mg/dL 8.9 Magnesium (1.8-2.4) mg/dL 1.7 L Total Bilirubin (0.2-1.0) mg/dL 0.3 AST (15-37) U/L 13 L ALT (14-59) U/L 19 Alkaline Phosphatase (46-116) U/L 66 Total Protein (6.4-8.2) g/dL 8.3 H Albumin (3.4-5.0) g/dL 4.2 Lipase (73-393) U/L 68 Urine Color (Yellow) Yellow Urine Clarity (Clear) Clear Urine pH (5-8) 7.0 Ur Specific Jackpot (1.005-1.025) 1.025 Urine Protein (Negative) mg/dL Negative Urine Ketones (Negative) mg/dL Negative Urine Blood (Negative) Moderate H Urine Nitrite (Negative) Negative Urine Bilirubin (Negative) Negative Urine Urobilinogen (Up TO 0.2) EU/dL 0.2 Ur Leukocyte Esterase (Negative) Negative Urine RBC (0-2) HPF 5-10 H Urine WBC (0-5) HPF 0-2 Ur Epithelial Cells (Negative) HPF Moderate Urine Crystals (Negative) HPF Few Amorphous Urine Bacteria (Negative) HPF Negative Urine Mucus (Negative) Heavy Ur Culture Indicated? No Urine Glucose (Negative) mg/dL Negative POC- Test(urine) Negative
== END 2022-05-06 18:06 | disposition home or self-care (01) ==
PROVIDERS: Emergency Provider Physician Assistant; PCP Nurse Practitioner
DX: R11.2 Nausea with vomiting, unspecified (principal); R00.0 Tachycardia, unspecified; Z86.16 Personal history of COVID-19; Z77.22 Contact with and (suspected) exposure to environmental tobacco smoke (acute) (chronic); D72.829 Elevated white blood cell count, unspecified
CPT/HCPCS: 36415; 80053; 81025; 83690; 96361; 96374; 96375; 99285; 74177; 81003; 81015; 83735; 85025; 99284; J2405; J3490

== ENCOUNTER 2022-05-23 15:55 | Outpatient (REF) | payer MEDICAID, SELFPAY ==
--- NOTE | 2022-05-23 14:45 | PAPFT_PTH ---
PATIENT: Ivy Amin LOC: [facility] U#:[id number] AGE/SX: 26/F ROOM: RE05/23/[address]: Fanta Andrew NP : 1995 BED: DIS: 05/23/2022 SPEC #: [id number] RECD: 05/23/22 17:27 STATUS: YEN REMelinda #: [id number] NIA: 05/23/22 14:[address]: Lorrie NETTLES,Fanta DEPT: [facility] Cytology RECD BY: Yana Hannah ENTERED: 05/23/22 17:28 SP TYPE: PAPFT OTHR DR: Anika Armstrong, PhD [employer]UL[employer] OPERATOR Tissues: 1 - CX/ENDOCX FOR PAP SMEARS Procedures: PAP THIN PREP/UVM Screening Comments: [id number]
== END 2022-05-23 15:56 | disposition home or self-care (01) ==
LOC: LBN 15:55
PROVIDERS: PCP Nurse Practitioner; Visit Provider Nurse Practitioner Women's Health
DX: Z12.4 Encounter for screening for malignant neoplasm of cervix (principal)
CPT/HCPCS: 88142

== ENCOUNTER 2022-05-29 15:13 | Outpatient (REF) | payer MEDICAID, SELFPAY ==
[2022-05-29 15:28] LABS: Source Nasal/Nares
[2022-05-29 17:05] LABS: COVID-19 PCR Negative (Negative)
== END 2022-05-29 15:14 | disposition home or self-care (01) ==
LOC: LBN 15:13
PROVIDERS: PCP Nurse Practitioner; Visit Provider Surgery
DX: Z01.818 Encounter for other preprocedural examination (principal); Z20.822 Contact with and (suspected) exposure to COVID-19
CPT/HCPCS: 87635

== ENCOUNTER 2022-05-31 08:24 | Day surgery (SDC) | payer MEDICAID, SELFPAY ==
--- NOTE | 2022-05-31 07:06 | W.PM.ENDDOP ---
Date of service: 05/31/22 Time of Service: 11:54 Endoscopy Report DATE OF PROCEDURE: 05/31/22 PRE-OP DIAGNOSIS: abdominal pain, N/V POST-OP DIAGNOSIS: same PROCEDURE: EGD with biopsies SURGEON: Sari Sinclair ANESTHESIA TYPE: General:No Airway ESTIMATED BLOOD LOSS: 2 PATHOLOGY: other (Bx of antrum) COMPLICATIONS: None DISPOSITION: same day INDICATIONS: Ivy is a pleasant 26-year-old female with 2 main issues.? The first is some abdominal pain nausea and vomiting.? The vomiting did subside since taking is omeprazole in the morning and taking Carafate twice a day when she remembers.? We discussed the differential of H. pylori infection, ulcers, GERD and simple gastritis.? I also discussed with her that sometimes people that are on marijuana whether smoked or edibles for a long period of time can develop cyclical nausea and vomiting. We discussed the fact that eating 1 large meal a day is not good for her.? It can overwhelm her stomach.? She really should be eating small meals throughout the day.? She tells me that she is just not hungry.? I explained that this could be a learned behavior and that I would recommend she start by trying to eat just some yogurt in the morning and then slowly increasing the amount that she eats.? She does not need to eat a huge meal.? I definitely would recommend more like 4-5 small meals throughout the day.? We reviewed the medications again that she supposed to take.? She should start on the famotidine at nighttime.? She should increase the Carafate to 4 times a day as prescribed by her primary care physician. We discussed the upper endoscopy in detail including the risks and benefits.? Risks, benefits and complications have been reviewed. Complications include but are not limited to bleeding, pain, perforation, sore throat, aspiration, and adverse reaction to the medications.? Questions were entertained and answered to their satisfaction and they wished to proceed. No guarantees were given or implied. FINDINGS: ? mild inflammation of the antrum PROCEDURE DESCRIPTION: After informed consent was obtained the patient was take to the procedure room and placed in a supine position. Monitors were applied and a time out was done. The patients name, date of , procedure type, allergies to medications and metal in their body was reviewed. A bite block was placed and the patient was sedated. Once sedated and comfortable the gastroscope was advanced through the oropharynx which was grossly normal into the esophagus. The proximal, mid-esophagus and distal esophagus were normal. The scope was advanced into the stomach and through the pylorus into the 3rd portion of the duodenum. The duodenum was noted to be normal. The scope was retracted back into the stomach and biopsies were done to rule out H. pylori. There were no ulcers. There was maybe a little bit of inflammation. The scope was retroflexed. The cardia and fundus were noted to be normal. There was no hiatal hernia noted. The scope was retracted back into the esophagus. The Z line was regular. The GE junction was at 30 cm. The scope was removed and the patient was woken up and taken back to [facility] in stable condition.
--- NOTE | 2022-05-31 07:08 | W.PM.DSUDISC ---
Discharge Plan Disposition Patient Disposition: HOME Condition: Good Discharge Details Reason For Visit: egd Attending Provider: Sari Sinclair Primary Care Provider: Anika Armstrong Home Meds and New Rx's Prescriptions: Continued trazodone 100 mg tablet 200 mg PO QHS PRN (Reason: sleep) Qty: 90 3RF atomoxetine 60 mg capsule 60 mg PO DAILY Qty: 30 0RF clonidine HCl 0.1 mg tablet 0.1 mg PO BID PRN (Reason: anxiety) Qty: 60 0RF famotidine [Pepcid] 20 mg tablet 20 mg PO DAILY Qty: 30 0RF Discontinued sucralfate [Carafate] 1 gram tablet 1 g PO QID 30 Days Qty: 120 0RF esomeprazole magnesium 20 mg tablet,delayed release (DR/EC) 20 mg PO DAILY Qty: 30 0RF Discharge Instructions Additional Instructions: Findings: mild inflammation in the stomach Follow up: I will call with results of biopsies Please call if you develop: fevers >101.5 Nausea or Vomiting Abdominal pain that is not transient Rectal bleeding that is more then a tbsp A hard abdomen and inability to pass gas DAY SURGERY UNIT POST ENDOSCOPY INSTRUCTIONS Instructions for everyone who is given Anesthesia: For your safety, please do the following for the next 24 Hours: a. Do not drive or operate dangerous equipment b. Do not drink alcohol beverages or use any recreational drugs for the first 24 hours or while taking pain medications. The medications in your body may have a reaction that can be dangerous. c. Do not make any important decisions or sign any important papers 1. Generally there are no restrictions on your activity after a day or so has gone by, but you may feel a bit fatigued for a few days. 2. After you arrive home you may have a light meal and return to a normal diet as you can tolerate it without feeling sick to your stomach. 3. After surgery, you may feel pain or discomfort. This should be only transient, but if it persists please contact your doctor. 4. If there are any questions regarding the findings of your procedure, please feel free to contact your doctor. 6. If you are unable to contact your doctor with a problem, contact the hospital at [phone]. 7. Continue all your regular medications unless directed otherwise. I understand the above instructions and have no questions. Signature of Patient or Responsible Adult Escort Date/Time Name of Responsible Adult Escort Signature of Nurse Date/Time Activity:: Activity as Tolerated Diet:: As Tolerated Discharge Orders Discharge Orders: Discharge Order (Routine); Ordered 05/31/22 Ordered By: Sari Sinclair
[2022-05-31 09:04] VITALS: BP 94/62; PULSE 60; RESP 16; TEMP 36.5; O2SAT 100
[2022-05-31] MEDS: Lactated Ringers 1,000 ML 80 ML IV (09:33)
--- NOTE | 2022-05-31 09:43 | W.ANESPRE ---
General Info Date of Service Date Performed: 05/31/22 Height: 5 ft Weight: 58.2 kg Body Mass Index (BMI): 25.0 Surgical Procedure: Operation Date: 05/31/22 10:35 Proposed Procedure Side Surgeon p Gastroscopy Sari Sinclair MD Meds Allergies and Home Medications Allergies Allergy/AdvReac Type Severity Reaction Status Date / Time No Known Drug Allergies Allergy Verified 05/31/22 09:15 Home Medication Medication Instructions Recorded famotidine 20 mg tablet (Pepcid) 20 mg PO DAILY #30 tabs 05/06/22 esomeprazole magnesium 20 mg 20 mg PO DAILY #30 tabs 05/12/22 tablet,delayed release sucralfate 1 gram tablet (Carafate) 1 g PO QID 30 days #120 tabs 05/12/22 trazodone 100 mg tablet 200 mg PO QHS PRN sleep #90 tabs 05/12/22 atomoxetine 60 mg capsule 60 mg PO DAILY #30 caps 05/25/22 clonidine HCl 0.1 mg tablet 0.1 mg PO BID PRN anxiety #60 tabs 05/25/22 Current Visit Medications: Current Medications Generic Name Dose Route Start Last Admin Trade Name Freq PRN Reason Stop Dose Admin Hyoscyamine Sulfate 0.125 mg 05/31/22 07:08 Hyoscyamine 0.125 Mg Sl/Oral/Chew SL DIRECTED PRN Ringer's Solution 1,000 mls @ 80 mls/hr 05/31/22 06:00 IV 06/29/22 23:59 INFUSION SCOTT IV Miscellaneous Supplies 1 each 05/31/22 06:00 Iv Access IV 06/29/22 23:59 DIRECTED SCOTT Ondansetron HCl 4 mg 05/31/22 07:08 Ondansetron 4 Mg/2 Ml Vial IVP Q4H PRN PRN Nausea / Vomiting Sodium Chloride 0 ml 05/31/22 06:00 Normal Saline Flush 10 Ml Syr IV 06/29/22 23:59 PRN PRN Sodium Chloride 0 ml 05/31/22 06:00 Normal Saline 10 Ml Vial IJ 06/29/22 23:59 DIRECTED PRN Sterile Water 0 ml 05/31/22 06:00 Water,Injection,Sterile 10 Ml Vial IJ 06/29/22 23:59 DIRECTED PRN PFSH Active Problems Active Problems: Problem Status Onset Code ADD (attention deficit disorder) F98.8 Stress incontinence N39.3 Constipation K59.00 GERD (gastroesophageal reflux disease) K21.9 Elevated TSH R79.89 Nausea & vomiting R11.2 Low back pain associated with a spinal disorder other than radiculopathy or spinal stenosis M54.50 Insomnia G47.00 Anemia D64.9 Anxiety 03/06/12 F41.9 Depression 03/06/12 F32.9 Medical History Medical History Amenorrhea COVID-19 08/2021- Encounter for contraceptive management (07/24/12) Headache (06/11/12) History of female sterilization (01/03/18) Interval laparoscopic tubal sterilization 12/19/2017. PTSD (post-traumatic stress disorder) (03/06/12) Sacroiliac joint pain (07/12/12) Shingles you may increase gabapentin, as discussed up to 6 tabs/day talk to children's provider about their immune status re: varicella Tonsil stone Medical History Comments:: pt anxious Surgical History Surgical History Ligation of fallopian tube (12/19/17) laparoscopic bilateral salpingectomy. Tobacco Smoking/Tobacco Use Status: Never Passive smoking exposure: Yes Second hand exposure: Yes Alcohol Alcohol Intake: never Substance Use Substance use: Socially Substance use type: does not use and marijuana Details: Last smoked marijuana 05/29/22 Prental History History 2 Para 2 Hx # Term Pregnancies Multiple births Hx # Pregnancies Ectopic pregnancies AB induced Hx Number of Living Children AB spontaneous Vital Signs and Lab Results Vital Signs Most Recent Vital Signs in EMR: Most Recent Vital Signs Temp Pulse Resp BP Pulse Ox 36.5 C 60 16 94/62 L 100 05/31/22 09:04 05/31/22 09:04 05/31/22 09:04 05/31/22 09:04 05/31/22 09:04 Lab Results Blood Type / Crossmatch: No Data to Display Complete Blood Count: White Blood Count 16.81 10^3/uL (4.4-10.8) H 05/06/22 16:15 Red Blood Count 4.34 10^6/uL (3.93-5.22) 05/06/22 16:15 Hemoglobin 12.9 g/dL (11.2-15.7) 05/06/22 16:15 Hematocrit 39.1 % (36.0-46.0) 05/06/22 16:15 Platelet Count 313 10^3/uL (130-400) 05/06/22 16:15 Complete Metabolic Panel: Sodium Level 139 mmol/L (136-145) 05/06/22 16:15 Potassium Level 3.8 mmol/L (3.5-5.1) 05/06/22 16:15 Chloride Level 103 mmol/L (98-107) 05/06/22 16:15 Carbon Dioxide Level 28.6 mmol/L (21.0-32.0) 05/06/22 16:15 Blood Urea Nitrogen 10 mg/dL (7-18) 05/06/22 16:15 Creatinine 0.8 mg/dL (0.55-1.02) 05/06/22 16:15 Estimated GFR/1.73 m2 >= 60.00 (mL/min/1.73m2) 05/06/22 16:15 Magnesium Level 1.7 mg/dL (1.8-2.4) L 05/06/22 16:15 Calcium Level 8.9 mg/dL (8.5-10.1) 05/06/22 16:15 Albumin 4.2 g/dL (3.4-5.0) 05/06/22 16:15 Glucose Level 99 mg/dL (74-106) 05/06/22 16:15 Liver Function Panel: Alanine Aminotransferase (ALT/SGPT) 19 U/L (14-59) 05/06/22 16:15 Aspartate Amino Transf (AST/SGOT) 13 U/L (15-37) L 05/06/22 16:15 Coagulation Panel: No Data to Display Cardiac Panel: No Data to Display Arterial Blood Gas: No Data to Display Venous Blood Gas: No Data to Display Pancreas Panel: Lipase 68 U/L (73-393) 05/06/22 16:15 Thyroid Panel: Thyroid Stimulating Hormone (TSH) 1.80 uIU/mL (0.36-3.74) 05/05/22 11:45 Infectious Disease: Coronavirus (COVID-19)(PCR) Negative (Negative) 05/29/22 08:46 Coronavirus 2019 Source Nasal/Nares 05/29/22 08:46 Blood Cultures: No Data to Display Toxicology Panel: No Data to Display Panel: No Data to Display Anesthesia Assessment and Plan Anesthesia History Personal History: No History of Anesthesia Complications Family History: No Family History of Anesthesia Complications Exercise Tolerance Exercise Tolerance: Metabolic Equivalents>4 Cardiac & Pulmonary Exam Cardiac Exam: Normal S1/S2 Heart Sounds Pulmonary Exam: Clear Bilateral Breath Sounds Implantable Cardiac Device Does patient have a Pacemaker or an ICD?: No Airway Exam Known Difficult Airway: No Mallampati Class: 1 Mouth Opening: Normal (> 3cm) Thyromental Distance: Greater than 3 cm Neck Range of Motion: Full ROM Neck Circumference: Normal Teeth Condition: Normal Dentition ASA Classification ASA Score: ASA 2 Emergency Case?: No NPO Status NPO Status: NPO Clears >2 hours, Solids >8 hours Status Status: Negative HCG Anesthesia Plan Resuscitation Status: Full Code Anesthesia Technique: General Anesthesia Airway Planned: Natural Airway Monitors Used: Standard Monitors Preoperative Comments:: 26 yo female for EGD r/t abd pain and nausea. Sig PMHx: ADD, GERD (Nexium), anxiety/depression, elevated TSH. Previous Mac 3 grade 1, easy mask.
[2022-05-31 09:50] VITALS: BMI 25.0
--- NOTE | 2022-05-31 11:46 | STOM_PTH ---
PATIENT: Ivy Amin LOC: [facility] U#:[id number] AGE/SX: 26/F ROOM: RE05/31/[address]: Sari Sinclair MD : [id number] BED: DIS: 05/31/2022 SPEC #: [id number] RECD: 05/31/22 13:07 STATUS: YEN REMelinda #: [id number] NIA: 05/31/22 11:[address]: Sari Sinclair DEPT: Surgical Specimen RECD BY: Yana Hannah ENTERED: 05/31/22 13:08 SP TYPE: STOMACH OTHR DR: Anika Armstrong, PhD [employer] Tissues: 1 - STOMACH BIOPSY Procedures: GROSS AND MICRO LEVEL 4 Comments: [id number]
[2022-05-31 11:57] VITALS: BP 93/53; PULSE 83; RESP 16; TEMP 36.7; O2SAT 96
--- NOTE | 2022-05-31 12:12 | W.ANESPOSTOP ---
Postoperative Evaluation Date, Time and Location Date Performed: 05/31/22 Time Performed: 12:13 Patient Location: Day Surgery Unit Vital Signs Most Recent Imported Vital Signs: Most Recent Vital Signs Temp Pulse Resp BP Pulse Ox 36.7 C 83 16 93/53 L 96 05/31/22 11:57 05/31/22 11:57 05/31/22 11:57 05/31/22 11:57 05/31/22 11:57 Pain Score Most Recent Pain Score: Most Recent Pain Score Pain Level 0 05/31/22 11:57 Assessment Mental Status: Awake (Alert & Oriented to Patient Baseline) Airway and Respiratory Function: Patent airway with normal (patient baseline) respiratory exam Cardiovascular Function: Hemodynamically Stable Hydration Status: Adequately Hydrated Nausea & Vomiting: No Nausea or Vomiting Pain: Pt. Denies Any Pain Peripheral Nerve Block: Patient did not receive a nerve block
[2022-05-31 12:27] VITALS: BP 98/58; PULSE 54; RESP 16; TEMP 36.4; O2SAT 100
== END 2022-05-31 12:50 | disposition home or self-care (01) ==
PROVIDERS: PCP Nurse Practitioner; Visit Provider Surgery
PROC: 0DJ68ZZ Inspection of Stomach, Via Natural or Artificial Opening Endoscopic (ICD-10-PCS; CPT 43235; principal; 2022-05-31 10:30)
DX: R11.2 Nausea with vomiting, unspecified (principal); R10.13 Epigastric pain; B96.81 Helicobacter pylori [H. pylori] as the cause of diseases classified elsewhere; K29.60 Other gastritis without bleeding
CPT/HCPCS: 43239; 81025; 88305

== ENCOUNTER 2022-06-14 14:07 | Outpatient (CLI) | payer MEDICAID, SELFPAY ==
--- NOTE | 2022-06-14 14:00 | RT.EKG_ITS ---
APPROVED REPORT Exam: Resting ECG Reason for Exam: prior to initiating medication Patient Location: O HR:74 bpm ECG Measurements Heart Rate 74 AXIS PA 148 P 58 QRSd 89 QRS 29 QT 385 T 7 QTc 428 Conclusion Sinus rhythm...normal P axis, V-rate 50- 99 Normal Electrocardiogram
== END 2022-06-14 14:08 | disposition home or self-care (01) ==
LOC: DI.CM 14:07
PROVIDERS: PCP Nurse Practitioner; Visit Provider Nurse Practitioner Family
DX: F98.8 Other specified behavioral and emotional disorders with onset usually occurring in childhood and adolescence (principal); Z13.6 Encounter for screening for cardiovascular disorders
CPT/HCPCS: 93010

== ENCOUNTER 2022-10-18 13:49 | Outpatient (CLI) | payer MEDICAID, SELFPAY ==
--- NOTE | 2022-10-18 12:15 | DI.US_ITS ---
Exam(s) US BREAST RT COMPLETE EXAM: US BREAST RT COMPLETE CLINICAL HISTORY: right breast lump,n63.10. TECHNIQUE: Complete ultrasound of the right breast was performed including all 4 quadrants, the retr oareolar region, and the ipsilateral axilla. COMPARISON: None. FINDINGS: No evidence of solid nor cystic lesions in all 4 quadrants of the right breast. Retroareolar regions also unremarkable. There is no breast edema. Scanning of the right axilla is negative for adenopathy. IMPRESSION: Negative complete right breast ultrasound. No adenopathy in the right axilla. BI-RADS Category 2 - Benign Findings Breast Density - Category C - Heterogeneously dense Breast density Category C or D implies that the patient has dense breast tissue. Dense breast tissue can make it harder to find cancer on a mammogram. Dense breast tissue is also associated with an incr eased risk of breast cancer. This information about the result of the mammogram report was provided to the patient to raise their awareness. Use this report when you speak with the patient about their risks for breast cancer, which includes their family history. At that time, you may recommend additional screening tests (Ultrasoun d or MRI) as these tests may add significant information. A negative radiographic report should not delay biopsy if a dominant or clinically suspicious mass is present. Up to ten percent of cancers are not identified on mammography. A negative report may reinforce clinical impression. Adenosis and dense breasts may obscure an underlying neoplasm. False positive reports average 6 to 10%. Patient will receive a letter notifying them of these results.
== END 2022-10-18 14:09 ==
LOC: DI 13:49
PROVIDERS: PCP Nurse Practitioner Family; Visit Provider Family Medicine
DX: N63.12 Unspecified lump in the right breast, upper inner quadrant (principal)
CPT/HCPCS: 76642

== ENCOUNTER 2023-01-19 15:27 | Outpatient (REF) | payer MEDICAID, SELFPAY | END 2023-01-19 15:28 | disposition home or self-care (01) | LOC: LBN 15:27 | PROVIDERS: PCP Nurse Practitioner Family; Visit Provider Physician Assistant | DX: N76.0 Acute vaginitis (principal) | CPT/HCPCS: 87480; 87510; 87660 ==

== ENCOUNTER 2023-04-13 14:15 | Outpatient (CLI) | payer MEDICAID, SELFPAY ==
--- NOTE | 2023-04-13 14:18 | DI.RAD_ITS ---
Exam(s) XR CHEST 2V PA LATERAL EXAM: XR CHEST 2V PA LATERAL CLINICAL HISTORY: ? 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 TECHNIQUE: 2D digital imaging was performed. COMPARISON: No exams were available for comparison FINDINGS: 2 views: Heart size is normal. The mediastinum is not widened. Lungs are clear. No infiltrates nor pleural effusions. Bidirectional thoracolumbar scoliosis noted. IMPRESSION: No acute pulmonary findings. Thoracolumbar scoliosis evident. DATA REPOSITORY: RADIATION DOSE DELIVERED:
== END 2023-04-13 14:35 ==
LOC: DI 14:15
PROVIDERS: PCP Nurse Practitioner Family; Visit Provider Physician Assistant
DX: L52 Erythema nodosum (principal); J02.9 Acute pharyngitis, unspecified; M41.35 Thoracogenic scoliosis, thoracolumbar region
CPT/HCPCS: 71046; 87070